=== PATIENT | male | born 1960 | race African-American/Black ===

== ENCOUNTER 2019-08-15 08:13 | Emergency (ER) | payer OTHER ==
[~2019-08-15] VITALS: Ht 175.3 cm; Wt 95.4 kg
[2019-08-15] MEDS ORDERED: SODIUM CHLORIDE 0.9% 1,000 ML IV ONE ×2 (09:04→10:45)
[2019-08-15] MEDS ORDERED: FAMOTIDINE 20MG/2ML VIAL IV STA (09:04)
[2019-08-15] MEDS ORDERED: METOCLOPRAMIDE HCL 10MG/2ML VIAL IV STA (09:04)
[2019-08-15 09:21] LABS: BASOPHILS % 0.2 % (0.0-2.0); EOSINOPHILS % 0.4 % (0.0-5.0); HEMATOCRIT. 45.8 % (42.0-52.0); HEMOGLOBIN. 15.9 g/dL (14.0-18.0); LYMPHOCYTES % 7.3 % (20.0-50.0); MEAN CORPUSCULAR HEMOGLOBIN 33.1 pg (28.0-32.0); MEAN CORPUSCULAR VOLUME 95.6 fL (80.0-94.0); MEAN PLATELET VOLUME 9.1 fl (7.4-10.4); MONOCYTES % 6.8 % (2.0-8.0); NEUTROPHILS % 85.3 % (40.0-76.0); PLATELET 151 x1000/uL (130-400); RED BLOOD CELL COUNT 4.79 mill/uL (4.7-6.1)
[2019-08-15 09:26] LABS: CHLORIDE 108 mEq/L (98-107)
[2019-08-15 10:39] LABS: CLARITY URINE CLEAR (CLEAR); COLOR URINE YELLOW (YELLOW); KETONES URINE NEGATIVE (NEGATIVE); LEUKOCYTE ESTERASE URINE NEGATIVE (NEGATIVE); NITRITE URINE NEGATIVE (NEGATIVE); OCCULT BLOOD URINE NEGATIVE (NEGATIVE); PROTEIN URINE TRACE (NEGATIVE); SPECIFIC GRAVITY URINE 1.016 (1.005-1.030)
[2019-08-15] MEDS ORDERED: POTASSIUM CHLORIDE INJ 40 MEQ in DEXT 5% WATER 250 ML IV ONE (10:45)
[2019-08-15] MEDS ORDERED: POTASSIUM CHLORIDE 20MEQ TABLET SR PO ONE (10:45)
[2019-08-15 13:30] VITALS: BP 149/84
== END 2019-08-15 13:34 | disposition home or self-care (01) ==
LOC: ER 08:29
DX: K52.9 Noninfective gastroenteritis and colitis, unspecified (principal); D57.1 Sickle-cell disease without crisis; Z98.890 Other specified postprocedural states
CPT/HCPCS: 36415; 80053; 81003; 83690; 85025; 96361; 96374; 96375; 99283; J2765; J3480; J3490; J7030; J7060

== ENCOUNTER 2019-08-28 09:52 | Emergency (ER) | payer OTHER ==
[~2019-08-28] VITALS: Ht 182.9 cm; Wt 96.0 kg
[~2019-08-28 09:52] MED LIST: ALPR1TAB2 PO; AMLO5TAB88 PO; HYDR25TA PO; OXYC-662 PO
[2019-08-28] MEDS ORDERED: OXYCODONE HCL/ACETAMINOPHEN 5/325MG TABLET PO ONE (10:15)
[2019-08-28 12:20] VITALS: BP 148/89
== END 2019-08-28 12:21 | disposition home or self-care (01) ==
LOC: ER 09:52
DX: M79.18 Myalgia, other site (principal); V49.49XA Driver injured in collision with other motor vehicles in traffic accident, initial encounter; Y93.89 Activity, other specified; Y92.89 Other specified places as the place of occurrence of the external cause; Y99.8 Other external cause status; F12.10 Cannabis abuse, uncomplicated; I10 Essential (primary) hypertension; Z98.890 Other specified postprocedural states; Z79.899 Other long term (current) drug therapy
CPT/HCPCS: 99284

== ENCOUNTER 2019-10-08 05:04 | Emergency (ER) | payer OTHER ==
[~2019-10-08] VITALS: Ht 175.3 cm; Wt 92.0 kg
[2019-10-08] MEDS ORDERED: IBUPROFEN 600MG TABLET PO ONE (06:00)
[2019-10-08 06:53] VITALS: BP 123/93
== END 2019-10-08 06:54 | disposition home or self-care (01) ==
LOC: ER 05:04
DX: M79.605 Pain in left leg (principal); I10 Essential (primary) hypertension; D57.1 Sickle-cell disease without crisis; Z98.890 Other specified postprocedural states
CPT/HCPCS: 99283; L1830

== ENCOUNTER 2019-10-28 22:29 | Emergency (ER) | payer OTHER ==
[~2019-10-28] VITALS: Ht 175.3 cm; Wt 96.0 kg
[2019-10-28] MEDS ORDERED: MORPHINE SULFATE 4 MG/ML CPJ (NOT FOR IM USE) IV STA (23:29)
[2019-10-28] MEDS ORDERED: SODIUM CHLORIDE 0.9% 1,000 ML IV ONE (23:29)
[2019-10-28] MEDS ORDERED: ONDANSETRON HCL 4MG/2ML INJ IV STA (23:29)
[2019-10-29 00:11] LABS: BASOPHILS % 0.8 % (0.0-2.0); EOSINOPHILS % 1.1 % (0.0-5.0); HEMATOCRIT. 40.8 % (42.0-52.0); HEMOGLOBIN. 14.1 g/dL (14.0-18.0); LYMPHOCYTES % 17.8 % (20.0-50.0); MEAN CORPUSCULAR HEMOGLOBIN 32.4 pg (28.0-32.0); MEAN CORPUSCULAR VOLUME 93.6 fL (80.0-94.0); MONOCYTES % 7.8 % (2.0-8.0); NEUTROPHILS % 72.5 % (40.0-76.0); PLATELET 167 x1000/uL (130-400); RED BLOOD CELL COUNT 4.36 mill/uL (4.7-6.1); RED CELL DISTRIBUTION WIDTH 12.7 % (11.6-14.6)
[2019-10-29 00:15] LABS: CHLORIDE 104 mEq/L (98-107)
[2019-10-29 04:00] VITALS: BP 113/61
== END 2019-10-29 04:10 | disposition home or self-care (01) ==
LOC: ER 22:29
DX: M71.22 Synovial cyst of popliteal space [Baker], left knee (principal); I10 Essential (primary) hypertension; D57.1 Sickle-cell disease without crisis; Z98.890 Other specified postprocedural states
CPT/HCPCS: 36415; 73590; 80048; 85025; 85044; 93971; 96374; 96375; 99284; J2270; J2405; J7030; Z7610

== ENCOUNTER 2020-10-25 05:06 | Emergency (ER) | payer OTHER ==
[~2020-10-25] VITALS: Ht 175.3 cm; Wt 100.0 kg
[2020-10-25] MEDS ORDERED: ONDANSETRON HCL 4MG/2ML INJ IV STA (06:55)
[2020-10-25] MEDS ORDERED: KETOROLAC 30MG/ML VIAL IV STA (06:55)
[2020-10-25] MEDS ORDERED: MORPHINE SULFATE 4 MG/ML CPJ (NOT FOR IM USE) IV STA (06:55)
[2020-10-25] MEDS ORDERED: SODIUM CHLORIDE 0.9% 1,000 ML IV ONE (07:00)
[2020-10-25 07:42] LABS: CHLORIDE 110 mEq/L (98-107)
[2020-10-25 10:37] LABS: BASOPHILS % 0.5 % (0.0-2.0); EOSINOPHILS % 1.3 % (0.0-5.0); HEMATOCRIT. 43.9 % (42.0-52.0); LYMPHOCYTES % 25.7 % (20.0-50.0); MEAN CORPUSCULAR HEMOGLOBIN 32.7 pg (28.0-32.0); MEAN PLATELET VOLUME 9.2 fl (7.4-10.4); MONOCYTES % 8.1 % (2.0-8.0); NEUTROPHILS % 64.4 % (40.0-76.0); PLATELET 134 x1000/uL (130-400); RED BLOOD CELL COUNT 4.68 mill/uL (4.7-6.1); RED CELL DISTRIBUTION WIDTH 12.9 % (11.6-14.6)
[2020-10-25 11:04] LABS: HEMOGLOBIN. 15.3 g/dL (14.0-18.0)
[2020-10-25 14:20] VITALS: BP 170/93
== END 2020-10-25 15:20 | disposition home or self-care (01) ==
LOC: ER 05:06
DX: D57.00 Hb-SS disease with crisis, unspecified (principal); M25.511 Pain in right shoulder; Z20.828 Contact with and (suspected) exposure to other viral communicable diseases; F17.200 Nicotine dependence, unspecified, uncomplicated; F12.10 Cannabis abuse, uncomplicated; I10 Essential (primary) hypertension
CPT/HCPCS: 36415; 71045; 73030; 80053; 84484; 85025; 87635; 93005; 96361; 96374; 96375; 99285; J1885; J2270; J2405; J7030

== ENCOUNTER 2020-11-06 04:53 | Emergency (ER) | payer OTHER ==
[~2020-11-06] VITALS: Ht 175.3 cm; Wt 100.0 kg
[2020-11-06 04:55] VITALS: BP 189/95
[2020-11-06] MEDS ORDERED: ACETAMINOPHEN 325MG TABLET PO ONE (06:30)
== END 2020-11-06 06:54 | disposition home or self-care (01) ==
LOC: ER 04:53
DX: M54.9 Dorsalgia, unspecified (principal); F12.10 Cannabis abuse, uncomplicated; I49.9 Cardiac arrhythmia, unspecified
CPT/HCPCS: 93005; 99284

== ENCOUNTER 2020-11-16 05:48 | Emergency (ER) | payer OTHER ==
[~2020-11-16] VITALS: Ht 175.3 cm; Wt 98.8 kg
[2020-11-16 10:48] VITALS: BP 166/91
== END 2020-11-16 10:52 | disposition home or self-care (01) ==
LOC: ER 05:48
DX: S09.90XA Unspecified injury of head, initial encounter (principal); I10 Essential (primary) hypertension; D57.1 Sickle-cell disease without crisis; F12.10 Cannabis abuse, uncomplicated; Z87.828 Personal history of other (healed) physical injury and trauma; V43.92XA Unspecified car occupant injured in collision with other type car in traffic accident, initial encounter; Y93.89 Activity, other specified; Y92.488 Other paved roadways as the place of occurrence of the external cause
CPT/HCPCS: 93005; 99284

== ENCOUNTER 2021-07-20 04:41 | Emergency (ER) | payer MEDICAID, OTHER ==
[~2021-07-20] VITALS: Ht 175.3 cm; Wt 100.0 kg
[2021-07-20] MEDS ORDERED: MORPHINE SULFATE 4 MG/ML CPJ (NOT FOR IM USE) IV STA (05:09)
[2021-07-20 05:49] LABS: BASOPHILS % 0.6 % (0.0-2.0); EOSINOPHILS % 2.1 % (0.0-5.0); HEMATOCRIT. 39.2 % (42.0-52.0); HEMOGLOBIN. 13.6 g/dL (14.0-18.0); MEAN CORPUSCULAR HEMOGLOBIN 32.4 pg (28.0-32.0); MONOCYTES % 9.6 % (2.0-8.0); NEUTROPHILS % 61.7 % (40.0-76.0); PLATELET 139 x1000/uL (130-400); RED BLOOD CELL COUNT 4.21 mill/uL (4.7-6.1)
[2021-07-20 05:54] LABS: CLARITY URINE CLEAR (CLEAR); COLOR URINE YELLOW (YELLOW); KETONES URINE NEGATIVE (NEGATIVE); LEUKOCYTE ESTERASE URINE NEGATIVE (NEGATIVE); NITRITE URINE NEGATIVE (NEGATIVE); OCCULT BLOOD URINE NEGATIVE (NEGATIVE); PROTEIN URINE NEGATIVE (NEGATIVE); SPECIFIC GRAVITY URINE 1.012 (1.005-1.030)
[2021-07-20 05:56] LABS: CHLORIDE 114 mEq/L (98-107)
[2021-07-20 06:06] LABS: PROTHROMBIN TIME 11.1 sec (9.6-11.0)
[2021-07-20 07:20] VITALS: BP 167/98
[2021-07-20] MEDS ORDERED: OMEP20TA2 PO (07:24)
== END 2021-07-20 07:32 | disposition home or self-care (01) ==
LOC: ER 04:41
DX: R10.9 Unspecified abdominal pain (principal); I10 Essential (primary) hypertension; D57.1 Sickle-cell disease without crisis; Z98.890 Other specified postprocedural states
CPT/HCPCS: 36415; 74176; 80053; 81003; 83690; 85025; 85610; 96374; 99284; J2270

== ENCOUNTER 2022-06-02 06:20 | Emergency (ER) | payer OTHER ==
[~2022-06-02] VITALS: Ht 175.3 cm; Wt 100.0 kg
[~2022-06-02 06:20] MED LIST changes: +OMEP20TA23 PO
[2022-06-02] MEDS ORDERED: ONDANSETRON 4MG ODT PO STA (08:50)
[2022-06-02] MEDS ORDERED: IBUPROFEN 600MG TABLET PO STA (08:50)
[2022-06-02 09:23] LABS: BASOPHILS % 0.7 % (0.0-2.0); EOSINOPHILS % 1.4 % (0.0-5.0); HEMATOCRIT. 40.9 % (42.0-52.0); HEMOGLOBIN. 14.1 g/dL (14.0-18.0); LYMPHOCYTES % 28.1 % (20.0-50.0); MEAN CORPUSCULAR HEMOGLOBIN 31.8 pg (28.0-32.0); MEAN CORPUSCULAR VOLUME 91.9 fL (80.0-94.0); MEAN PLATELET VOLUME 8.6 fl (7.4-10.4); NEUTROPHILS % 60.8 % (40.0-76.0); PLATELET 167 x1000/uL (130-400); RED BLOOD CELL COUNT 4.46 mill/uL (4.7-6.1); RED CELL DISTRIBUTION WIDTH 13.3 % (11.6-14.6)
[2022-06-02 09:29] LABS: CHLORIDE 104 mEq/L (98-107)
[2022-06-02] MEDS ORDERED: IBUP-2029 MT (09:45)
[2022-06-02] MEDS ORDERED: CARB-274 EACH EAR (09:45)
[2022-06-02 09:55] VITALS: BP 126/59
== END 2022-06-02 09:56 | disposition home or self-care (01) ==
LOC: ER 06:20
DX: D57.00 Hb-SS disease with crisis, unspecified (principal); H61.21 Impacted cerumen, right ear; I10 Essential (primary) hypertension; Z98.890 Other specified postprocedural states
CPT/HCPCS: 36415; 80053; 85025; 85044; 99283; Q0162

== ENCOUNTER 2022-07-03 05:14 | Emergency (ER) | payer OTHER ==
[~2022-07-03] VITALS: Ht 175.3 cm; Wt 120.0 kg
[~2022-07-03 05:14] MED LIST changes: +CARB-274 EACH EAR; +IBUP-2029 MT
[2022-07-03] MEDS ORDERED: CARB15DR63 RIGHT EAR (05:51)
[2022-07-03 06:22] VITALS: BP 151/86
== END 2022-07-03 06:23 | disposition home or self-care (01) ==
LOC: ER 05:14
DX: H61.21 Impacted cerumen, right ear (principal)
CPT/HCPCS: 69210; 99282

== ENCOUNTER 2022-12-18 20:58 | Emergency (ER) | payer OTHER ==
[~2022-12-18] VITALS: Ht 175.3 cm; Wt 102.0 kg
[~2022-12-18 20:58] MED LIST changes: +CARB15DR63 RIGHT EAR
[2022-12-18 21:06] VITALS: BP 184/90
[2022-12-19] MEDS ORDERED: OXYCODONE HCL/ACETAMINOPHEN 5/325MG TABLET PO ONE (01:00)
[2022-12-19 01:28] LABS: BASOPHILS % 0.7 % (0.0-2.0); EOSINOPHILS % 1.4 % (0.0-5.0); HEMATOCRIT. 42.2 % (42.0-52.0); HEMOGLOBIN. 14.7 g/dL (14.0-18.0); LYMPHOCYTES % 30.3 % (20.0-50.0); MEAN CORPUSCULAR HEMOGLOBIN 31.7 pg (28.0-32.0); MEAN CORPUSCULAR VOLUME 91.1 fL (80.0-94.0); MEAN PLATELET VOLUME 9.1 fl (7.4-10.4); MONOCYTES % 9.5 % (2.0-8.0); NEUTROPHILS % 58.1 % (40.0-76.0); PLATELET 164 x1000/uL (130-400); RED BLOOD CELL COUNT 4.64 mill/uL (4.7-6.1)
[2022-12-19 01:34] LABS: CHLORIDE 112 mEq/L (98-107)
[2022-12-19] MEDS ORDERED: OXYCODONE HCL/ACETAMINOPHEN 5/325MG TABLET PO NR (02:45)
== END 2022-12-19 03:06 | disposition home or self-care (01) ==
LOC: ER 20:58
DX: D57.00 Hb-SS disease with crisis, unspecified (principal); I10 Essential (primary) hypertension; Z98.890 Other specified postprocedural states
CPT/HCPCS: 36415; 80053; 85025; 85044; 86850; 86900; 99283

== ENCOUNTER 2023-03-27 03:56 | Emergency (ER) | payer OTHER ==
[~2023-03-27] VITALS: Ht 175.3 cm; Wt 100.0 kg
[2023-03-27 03:58] VITALS: BP 165/92
[2023-03-27] MEDS ORDERED: MORPHINE SULFATE 4 MG/ML CPJ (NOT FOR IM USE) IV ONE (05:30)
[2023-03-27] MEDS ORDERED: SODIUM CHLORIDE 0.9% 1,000 ML IV ONE (05:30)
[2023-03-27 05:54] LABS: BASOPHILS % 0.9 % (0.0-2.0); EOSINOPHILS % 1.7 % (0.0-5.0); HEMATOCRIT. 37.3 % (42.0-52.0); LYMPHOCYTES % 32.3 % (20.0-50.0); MEAN CORPUSCULAR HEMOGLOBIN 31.8 pg (28.0-32.0); MEAN CORPUSCULAR VOLUME 90.8 fL (80.0-94.0); MEAN PLATELET VOLUME 8.9 fl (7.4-10.4); MONOCYTES % 10.4 % (2.0-8.0); NEUTROPHILS % 54.7 % (40.0-76.0); PLATELET 148 x1000/uL (130-400); RED BLOOD CELL COUNT 4.11 mill/uL (4.7-6.1); RED CELL DISTRIBUTION WIDTH 13.2 % (11.6-14.6)
[2023-03-27] MEDS ORDERED: HYDROCODONE/ACETAMINOPHEN 10/325MG TABLET PO ONE (06:00)
[2023-03-27 06:07] LABS: INR 1.1; PROTHROMBIN TIME 11.3 sec (9.6-11.0)
[2023-03-27 06:15] LABS: CHLORIDE 103 mEq/L (98-107)
[2023-03-27] MEDS ORDERED: NALO4SPR BOTHNSTRLS (06:34)
[2023-03-27] MEDS ORDERED: OXYC-748 PO (06:34)
== END 2023-03-27 07:03 | disposition home or self-care (01) ==
LOC: ER 03:56
DX: D57.00 Hb-SS disease with crisis, unspecified (principal); Z76.0 Encounter for issue of repeat prescription
CPT/HCPCS: 36415; 80053; 85025; 85610; 85660; 99283; Z7610; J2270; J7030

== ENCOUNTER 2023-08-12 23:45 | Emergency (ER) | payer OTHER ==
[~2023-08-12] VITALS: Ht 175.3 cm; Wt 102.7 kg
[~2023-08-12 23:45] MED LIST changes: +NALO4SPR BOTHNSTRLS; +OXYC-748 PO
[2023-08-12 23:57] VITALS: BP 146/79; PULSE 96; RESP 18; TEMP 98.1; O2SAT 98
[2023-08-13 00:37] LABS: EOSINOPHILS % 2.2 % (0.0-5.0); HEMATOCRIT. 40.3 % (42.0-52.0); HEMOGLOBIN. 13.8 g/dL (14.0-18.0); LYMPHOCYTES % 30.5 % (20.0-50.0); MEAN CORPUSCULAR HEMOGLOBIN 31.3 pg (28.0-32.0); MEAN CORPUSCULAR HGB CONC 34.4 g/dL (31.0-37.0); MEAN PLATELET VOLUME 9.3 fl (7.4-10.4); MONOCYTES % 9.5 % (2.0-8.0); NEUTROPHILS % 56.8 % (40.0-76.0); PLATELET 161 x1000/uL (130-400); RED BLOOD CELL COUNT 4.43 mill/uL (4.7-6.1); RED CELL DISTRIBUTION WIDTH 12.8 % (11.6-14.6); WHITE BLOOD COUNT 6.3 x1000/uL (4.5-11.0)
[2023-08-13 00:50] LABS: CHLORIDE 108 mEq/L (98-107); INDEX HEMOLYSI 1 (1-3); INDEX ICTERIC 1 (1-4); INDEX LIPEMIC 1 (1-3); POTASSIUM 3.6 mEq/L (3.5-5.1); SODIUM 138 mEq/L (136-145)
[2023-08-13 01:00] LABS: ALANINE AMINOTRANSFERASE 38 IU/L (13-61); ALBUMIN 3.9 g/dL (3.4-5.0); ASPARTATE AMINOTRANSFERASE 27 IU/L (15-37); BILIRUBIN TOTAL 0.5 mg/dL (0.1-1.0); CALCIUM 9.5 mg/dL (8.5-10.1); CARBON DIOXIDE 27 mEq/L (21-32); CREATININE 1.2 mg/dL (0.6-1.3); GLUCOSE 125 mg/dL (70-105); PROTEIN TOTAL 7.1 g/dL (6.0-8.3); UREA NITROGEN BLOOD 17 mg/dL (7-21)
[2023-08-13] MEDS ORDERED: NAPR-1176 MT (01:24)
[2023-08-13] MEDS ORDERED: KETOROLAC 60MG/2ML VIAL IM ONE (01:30)
== END 2023-08-13 02:49 | disposition home or self-care (01) ==
LOC: ER 23:45
DX: M79.10 Myalgia, unspecified site (principal); I10 Essential (primary) hypertension; F12.10 Cannabis abuse, uncomplicated; Z79.899 Other long term (current) drug therapy
CPT/HCPCS: 99283; 80053; 85025; 85044; 86850; 86900; 86901; 36415; 96372; J1885

== ENCOUNTER 2024-06-20 18:35 | Emergency (ER) | payer MEDICAID, OTHER ==
[~2024-06-20] VITALS: Ht 172.7 cm; Wt 87.0 kg
[~2024-06-20 18:35] MED LIST changes: +NAPR-1176 MT
[2024-06-20 18:44] VITALS: TEMP 98.4; O2SAT 100
[2024-06-20] MEDS ORDERED: CYCL5TAB MT (20:05)
[2024-06-20] MEDS ORDERED: NAPR-681 MT (20:05)
[2024-06-20 20:06] VITALS: PULSE 82
[2024-06-20] MEDS: ACETAMINOPHEN 325MG TABLET PO ONE (20:06)
[2024-06-20] MEDS: DIAZEPAM 5 MG TABLET PO ONE (20:06)
[2024-06-20] MEDS: IBUPROFEN 600MG TABLET PO ONE (20:06)
[2024-06-20 20:15] VITALS: BP 168/96; RESP 20
[2024-06-20] MEDS: LIDOCAINE 5% PATCH TOP SCH (20:15)
== END 2024-06-20 20:42 | disposition home or self-care (01) ==
LOC: ER 18:35
DX: M54.9 Dorsalgia, unspecified (principal); M54.2 Cervicalgia; I10 Essential (primary) hypertension; F12.90 Cannabis use, unspecified, uncomplicated; D57.1 Sickle-cell disease without crisis
CPT/HCPCS: 72070; 72100; 99284